=== PATIENT | male | born 1990 | race Caucasian/White ===

== ENCOUNTER 2022-10-16 13:13 | Emergency (ER) | payer OTHER ==
[~2022-10-16] VITALS: Ht 182.9 cm; Wt 63.6 kg
[~2022-10-16 13:13] MED LIST: NO HOME MEDICATIONS
[2022-10-16 13:36] VITALS: TEMP 98.3
[2022-10-16 14:47] LABS: COLLECTION METHOD CLEAN CATCH
[2022-10-16 14:57] LABS: URINE APPEARANCE Clear (CLEAR/HAZY); URINE COLOR Yellow (YELLOW)
[2022-10-16 14:58] LABS: URINE BLOOD Negative (NEGATIVE); URINE GLUCOSE Negative (NEGATIVE); URINE KETONE Negative (NEGATIVE); URINE NITRATE Negative (NEGATIVE); URINE PROTEIN(semi-quant) Negative (NEGATIVE); URINE UROBILINOGEN 0.2 E.U/dL (0.2-1.0)
[2022-10-16 15:03] LABS: MUCOUS Present (NOT PRESENT); SQUAMOUS EPITHELIAL None Seen /hpf (0-10); URINE BACTERIA None Seen /hpf (NONE SEEN); URINE RBC 0-2 /hpf (0-2)
[2022-10-16 15:22] LABS: BASO # 0.1 K/mm3 (0.0-0.2); BASO % 1.5 % (0.0-2.0); GRAN # 3.3 K/mm3 (1.4-6.5); GRAN % 54.1 % (42.2-75.2); HEMATOCRIT 43.3 % (42.0-52.0); HEMOGLOBIN 15.2 g/dl (13.5-18.0); LYMPH # 2.3 K/mm3 (1.2-3.4); LYMPH % 37.9 % (20.0-51.0); MEAN CELL VOLUME 93 fl (80.0-100.0); MEAN CORPUSCULAR HEMOGLOBIN 33 pg (27-31); MEAN CORPUSCULAR HGB CONC 35 g/dl (33.0-37.0); MEAN PLATELET VOLUME 8.2 fl (7.4-10.4); MONO # 0.4 K/mm3 (0.1-0.6); MONO % 6.3 % (1.7-9.3); PLATELET COUNT 449 K/mm3 (130-400); RED BLOOD COUNT 4.66 M/mm3 (4.20-5.60); REDCELL DISTRIBUTION WIDTH-CV 12.3 % (11.5-14.5)
[2022-10-16 15:25] LABS: ALANINE AMINOTRANSFERASE 22 U/L (0-55); ALKALINE PHOSPHATASE 61 U/L (40-150); ANION GAP 11 mmol/L (7-16); AST,SGOT 24 U/L (5-34); BILIRUBIN,TOTAL 0.4 mg/dL (0.2-1.2); BLOOD UREA NITROGEN 6 mg/dL (9-21); CARBON DIOXIDE 28 mmol/L (22-29); CHLORIDE 107 mmol/L (98-107); GLUCOSE 100 mg/dL (70-99); POTASSIUM 4.2 mmol/L (3.5-4.5); SODIUM 146 mmol/L (136-145)
[2022-10-16 15:26] LABS: ACETAMINOPHEN < 1.0 ug/mL (10-30); SALICYLATE < 5.0 mg/dL (15.0-30.0)
[2022-10-16 15:28] LABS: ALCOHOL(ethanol),MEDICAL 307 mg/dL (0-10)
[2022-10-16 15:33] LABS: TRICYCLIC ANTIDEPRESS URINE NEGATIVE
[2022-10-16 15:46] LABS: TSH w REFLEX 0.686 uIU/mL (0.350-4.940)
[2022-10-17 11:15] VITALS: BP 129/89; PULSE 69
== END 2022-10-17 11:15 | disposition home or self-care (01) ==
LOC: COL.ER 13:13
PROVIDERS: Nurse Practitioner Family
DX: F41.9 Anxiety disorder, unspecified (principal); F10.129 Alcohol abuse with intoxication, unspecified; F19.10 Other psychoactive substance abuse, uncomplicated; F17.200 Nicotine dependence, unspecified, uncomplicated; Z28.310 Unvaccinated for COVID-19

== ENCOUNTER 2023-10-07 19:12 | Emergency (ER) | payer OTHER ==
[~2023-10-07] VITALS: Ht 185.4 cm; Wt 72.7 kg
[2023-10-07 19:14] VITALS: BP 127/84; PULSE 66; TEMP 98.2
[2023-10-07 19:30] LABS: BASO # 0.1 K/mm3 (0.0-0.2); BASO % 1.8 % (0.0-2.0); EOS # 0.2 K/mm3 (0.0-0.7); EOS % 2.8 % (0.0-4.0); GRAN # 2.3 K/mm3 (1.4-6.5); GRAN % 33.8 % (42.2-75.2); HEMATOCRIT 45.3 % (42.0-52.0); HEMOGLOBIN 16.7 g/dl (13.5-18.0); LYMPH # 3.6 K/mm3 (1.2-3.4); LYMPH % 53.3 % (20.0-51.0); MEAN CELL VOLUME 89 fl (80.0-100.0); MEAN CORPUSCULAR HEMOGLOBIN 33 pg (27-31); MEAN CORPUSCULAR HGB CONC 37 g/dl (33.0-37.0); MEAN PLATELET VOLUME 8.9 fl (7.4-10.4); MONO # 0.6 K/mm3 (0.1-0.6); MONO % 8.3 % (1.7-9.3); PLATELET COUNT 259 K/mm3 (130-400); REDCELL DISTRIBUTION WIDTH-CV 13.1 % (11.5-14.5)
[2023-10-07 19:48] LABS: ALANINE AMINOTRANSFERASE 30 U/L (0-55); ALKALINE PHOSPHATASE 90 U/L (40-150); ANION GAP 10 mmol/L (7-16); AST,SGOT 36 U/L (5-34); BILIRUBIN,TOTAL 0.7 mg/dL (0.2-1.2); BLOOD UREA NITROGEN 8 mg/dL (9-21); CALCIUM 9.1 mg/dL (8.4-10.2); CARBON DIOXIDE 25 mmol/L (22-29); CHLORIDE 113 mmol/L (98-107); CREATININE, serum 0.85 mg/dL (0.72-1.25); GLUCOSE 85 mg/dL (70-99); POTASSIUM 3.7 mmol/L (3.5-4.5); SALICYLATE < 5.0 mg/dL (15.0-30.0); SODIUM 148 mmol/L (136-145); TOTAL PROTEIN 6.9 gm/dL (6.2-8.1)
[2023-10-07 19:50] LABS: ALCOHOL(ethanol),MEDICAL 385 mg/dL (0-10)
[2023-10-07 20:03] LABS: TROPONIN-I < 0.010 ng/mL (0.00-0.033)
== END 2023-10-07 20:09 | disposition home or self-care (01) ==
LOC: COL.ER 19:12
PROVIDERS: Nurse Practitioner Primary Care
DX: F10.129 Alcohol abuse with intoxication, unspecified (principal); Y90.8 Blood alcohol level of 240 mg/100 ml or more

== ENCOUNTER 2023-10-11 10:31 | Inpatient (IN) | payer OTHER ==
[2023-10-11] VITALS (8 sets, daily range): BP systolic 120–163; BP diastolic 74–91; PULSE 79–100; TEMP 98.1–100.8
[~2023-10-11] VITALS: Ht 185.4 cm; Wt 63.7 kg
[2023-10-11] MEDS ORDERED: NS 1,000 ML IV ONE (11:15)
[2023-10-11 11:17] LABS: COLLECTION METHOD CLEAN CATCH
[2023-10-11 11:26] LABS: BASO # 0.1 K/mm3 (0.0-0.2); BASO % 1.5 % (0.0-2.0); EOS % 0.7 % (0.0-4.0); GRAN # 4.2 K/mm3 (1.4-6.5); GRAN % 72.2 % (42.2-75.2); HEMATOCRIT 47.1 % (42.0-52.0); HEMOGLOBIN 16.5 g/dl (13.5-18.0); LYMPH # 0.9 K/mm3 (1.2-3.4); LYMPH % 15.2 % (20.0-51.0); MEAN CELL VOLUME 92 fl (80.0-100.0); MEAN CORPUSCULAR HEMOGLOBIN 32 pg (27-31); MEAN CORPUSCULAR HGB CONC 35 g/dl (33.0-37.0); MEAN PLATELET VOLUME 9.1 fl (7.4-10.4); MONO # 0.6 K/mm3 (0.1-0.6); MONO % 10.1 % (1.7-9.3); PLATELET COUNT 233 K/mm3 (130-400); RED BLOOD COUNT 5.13 M/mm3 (4.20-5.60); REDCELL DISTRIBUTION WIDTH-CV 13.1 % (11.5-14.5)
[2023-10-11 11:30] LABS: URINE APPEARANCE CLEAR (CLEAR/HAZY); URINE BLOOD NEGATIVE (NEGATIVE); URINE COLOR YELLOW (YELLOW); URINE GLUCOSE NEGATIVE (NEGATIVE); URINE KETONE NEGATIVE (NEGATIVE); URINE NITRATE NEGATIVE (NEGATIVE); URINE PROTEIN(semi-quant) 1+ (NEGATIVE)
[2023-10-11 11:53] LABS: SQUAMOUS EPITHELIAL 0-2 /hpf (0-10); URINE RBC 0-2 /hpf (0-2); URINE WBC 0-2 /hpf (0-2)
[2023-10-11 11:54] LABS: URINE BACTERIA NONE SEEN /hpf (NONE SEEN)
[2023-10-11 12:02] LABS: TRICYCLIC ANTIDEPRESS URINE NEGATIVE (NEGATIVE)
[2023-10-11 12:49] LABS: ALBUMIN 4.5 gm/dL (3.5-5.0); BILIRUBIN,TOTAL 1.1 mg/dL (0.2-1.2); CREATININE, serum 0.78 mg/dL (0.72-1.25); TOTAL PROTEIN 7.8 gm/dL (6.2-8.1)
[2023-10-11 13:14] LABS: POTASSIUM 4.8 mmol/L (3.5-4.5)
[2023-10-11] MEDS ORDERED: Mag/Al Hydrox/Simeth Susp 30 ML CUP PO PRN (13:45)
[2023-10-11] MEDS ORDERED: DESYREL 100MG100 MG PO (13:45)
[2023-10-11] MEDS ORDERED: LORazepam 2 MG/ML 1 ML VIAL IV PRN (13:45)
[2023-10-11] MEDS ORDERED: INDERAL40 MG PO (13:51)
[2023-10-11] MEDS ORDERED: ZOLOFT 50MG50 MG PO (13:52)
[2023-10-11] MEDS ORDERED: Nicotine 21 MG DAILY PATCH TD SCH (15:18)
[2023-10-11] MEDS ORDERED: Ondansetron 4 MG/2 ML VIAL IV PRN (15:30)
[2023-10-11] MEDS ORDERED: NS 1,000 ML IV SCH (15:30)
[2023-10-11] MEDS ORDERED: diazePAM 10 MG TAB PO SCH (16:00)
[2023-10-11] MEDS ORDERED: Multivitamin TAB PO SCH (17:00)
--- NOTE | 2023-10-11 19:19 | NUR ---
Patient assessed at this time. Alert and oriented, and able to make needs known. Reports all over pain and aches. Temp 100.8. Call placed to [facility], new order for one time dose of 1000 mg Acetaminophen. Scored 10 on detox protocol. Peripheral IV to right AC with IV fluids running per orders. Denies SOB and dyspnea. LS CTA. HRR. Telemetry in place. BSAx4. No edema. Aware of plan for detox protocol. Voices no questions, needs, or concerns at this time. In bed with call light within reach.
[2023-10-11] MEDS ORDERED: Acetaminophen 500 MG TAB PO ONE (19:30)
[2023-10-11] MEDS ORDERED: Thiamine 100 MG TAB PO SCH (21:00)
[2023-10-12] VITALS (15 sets, daily range): BP systolic 123–146; BP diastolic 74–91; PULSE 80–108; TEMP 97.6–98.5
--- NOTE | 2023-10-12 06:07 | NUR ---
Patient received PRN Ativan per detox protocol, as well as Valium taper. Reports he has been able to get some rest tonight. Continues on IV fluids per orders. Voices no questions, needs, or concerns at this time. In bed with call light within reach. High fall risk precautions in place. Bed alarm on.
[2023-10-12 08:39] LABS: CALCIUM 8.7 mg/dL (8.4-10.2); CREATININE, serum 0.67 mg/dL (0.72-1.25); MAGNESIUM 1.7 mg/dL (1.6-2.6); POTASSIUM 3.9 mmol/L (3.5-4.5)
[2023-10-12] MEDS ORDERED: Folic Acid 1 MG TAB PO SCH (09:00)
[2023-10-12] MEDS ORDERED: oxyCODONE 5 MG TAB PO SCH (09:15)
--- NOTE | 2023-10-12 11:19 | NUR ---
Initial visit; Patient thanked Machine Brusher for looking in on him and offering God's blessings and Machine Brusher's interest in helping him recover from his alcoholism. Machine Brusher will keep Miles in her prayers. Follow-up.
--- NOTE | 2023-10-12 15:52 | NUR ---
supply service worker was informed by DB Hinson that pt was admitted for alcohol use, has no place to stay, and was interested in inpatient services. supply service worker met with pt to complete intake information and discuss discharge planning. Pt reports he lives in [place]. He sees Dr. Temple and obtains medications with no difficulites. He reports his mother, Kira as his contact. He is independent with ADLS and uses no DME. SW inquired about a DPOA-HC and pt reports he does not have one, but wanted to complete one. He listed his mother, Kira and grandma Denae as his DPOA-HC. SW and Jerica Mcdonnell witnessed his siganture. Original and copies provided. Copy in the chart. SW discussed the RN's note stating pt would be interested in resources. Pt was agreeable to recieving supports. SW discussed inpatient options for MH or ABBY. Pt reports he has never seen anyone or discussed his mental health concerns. Pt attributes his drinking to "stuff in my head" he needs sorted. SW clarified that pt is wanting more so mental health information. SW advised she will speak with [facility] to see if they have co-occuring programs. Pt was agreeable to this. SW discussed how she was informed pt was kicked out of living at his grandmother's. Pt confirmed this. SW advised she can look into [facility]'s if they cannot get him in an inpatient facilty. Pt reports he will see how tomorrow goes. SW advised she will discuss this in the morning. SHRUTHI spoke with [facility] who confirms they accept pt's insurance and have beds. SHRUTHI faxed clinical information to [facility]. SHRUTHI later called back to see if the referral was recieved. SW was informed it was recieved, but they do not do co-occuring treatments. SHRUTHI was provided with information on [facility] and [facility]. SHRUTHI contacted Kay Anderson for insight on inpatient information for pt. She reports she is a senior marketing specialist and can reach out to patient to discuss. SHRUTHI faxed over pt's clinicals for Kay to review. She reports there is openings in [facility] and they can assist with transport. SHRUTHI later met with pt and informed him of the upate. Pt verbalized understanding and acknowledged that Kay, treatment senior marketing specialist will reach out to patient to assist in providing inpatient information. Pt was agreeable to this. Discharge Plan: tbd, pt wants inpatient MH vs penitentiary
[2023-10-12] MEDS ORDERED: oxyCODONE 5 MG TAB PO PRN (19:15)
--- NOTE | 2023-10-12 20:41 | NUR ---
Patient assessed around 1954. Scored 10 on detox protocol, and given PRN Ativan per orders. Did complain of mild nausea, but did not wanting anything for it at this time. Alert and oriented x 4. Peripheral IV to right AC with IV fluids running per orders. LS CTA. HRR. Telemetry in place. BSAx4. No edema. Voices no questions, needs, or concerns at this time. In bed with call light within reach. High fall risk precautions in place. Bed alarm on.
[2023-10-13] VITALS (10 sets, daily range): BP systolic 119–137; BP diastolic 76–88; PULSE 70–89; TEMP 97.5–98.3
--- NOTE | 2023-10-13 05:37 | NUR ---
Patient continues on detox protocol. Given PRN Ativan twice this shift per protocol, and scheduled Valium once. Patient more drowsy tonight, but does awaken to verbal stimuli. Reports feeling foggy, and explained that it could be a side effect from the medication. Went over detox medications with patient multiple times during the night. Asking when Ativan is next due, but explained that it is based off of his detox score, and he did not score high enough for Ativan. Continues on IV fluids per orders. Voices no further questions, needs, or concerns at this time. In bed with call light within reach. High fall risk precautions in place. Bed alarm on.
--- NOTE | 2023-10-13 07:30 | NUR ---
Patient sleeping in bed, easily awakened with verbal command. A&Ox3. VSS. IV CDI, fluids infusing. Denies pain and discomfort. ETOH protocol in place. Call light within reach. Bed alarm on
[2023-10-13 07:52] LABS: BASO % 0.8 % (0.0-2.0); EOS # 0.1 K/mm3 (0.0-0.7); EOS % 1.8 % (0.0-4.0); GRAN # 3.1 K/mm3 (1.4-6.5); GRAN % 64.3 % (42.2-75.2); LYMPH # 1.1 K/mm3 (1.2-3.4); LYMPH % 22.7 % (20.0-51.0); MEAN CELL VOLUME 91 fl (80.0-100.0); MEAN CORPUSCULAR HEMOGLOBIN 32 pg (27-31); MEAN CORPUSCULAR HGB CONC 35 g/dl (33.0-37.0); MEAN PLATELET VOLUME 10.2 fl (7.4-10.4); MONO # 0.5 K/mm3 (0.1-0.6); MONO % 10.2 % (1.7-9.3); PLATELET COUNT 153 K/mm3 (130-400); RED BLOOD COUNT 4.27 M/mm3 (4.20-5.60); REDCELL DISTRIBUTION WIDTH-CV 12.8 % (11.5-14.5)
[2023-10-13 07:57] LABS: HEMOGLOBIN 13.7 g/dl (13.5-18.0)
[2023-10-13 08:08] LABS: CALCIUM 8.7 mg/dL (8.4-10.2); CREATININE, serum 0.61 mg/dL (0.72-1.25); MAGNESIUM 1.7 mg/dL (1.6-2.6); POTASSIUM 3.9 mmol/L (3.5-4.5)
[2023-10-13] MEDS ORDERED: FOLIC ACID 11 MG/TA1 PO (08:29)
[2023-10-13] MEDS ORDERED: MULTI VITAMINS1 TAB PO (08:30)
[2023-10-13] MEDS ORDERED: THIAMINE 1100 MG/TAB PO (08:30)
--- NOTE | 2023-10-13 11:17 | NUR ---
Discharge paperwork reviewed with the patient. PAtient verbalized an understanding to follow doctors orders. Patient calling mom for update on ride and hotel information. Call light within reach
--- NOTE | 2023-10-13 16:08 | NUR ---
homeworker was informed during rounding by Dr. Hastings that pt can discharge today. SHRUTHI spoke with Justin field service representative, Kay [phone] to discuss if pt was accepted for inpatient MH/ABBY. She informs SW patient was accepted to [address] [place] [address] in [facility] and they are corresponding transportation information. She reports patient (and SW) need to confirm by calling [employer] that his insurance is primary as they are showing Medicaid. SW met with pt to discuss the plan. He reports he has been discussing with the admissions individual and Kay. SW advised they need to call [employer] to discuss if this is primary insurance and obtain the name and reference number of who confirms this. Pt was agreeable to SW's help. SHRUTHI called [employer] with pt who confirmed this is primary and spoke with Flaca Nguyen ref #[id number]. Kay, pt, and their admissions team continued to work towards transportation details. SHRUTHI spoke with patient's mother, Kira and GrandDenae valadez to discuss where patient could stay if this transfer is not done from the hospital. Mother was agreeable to getting pt a hotel and Uber for the night. Pt informed the team that he will go tomorrow to [address] [place] [address]. SW corresponded with Mother who confirmed she booked a room for pt at [facility] in [place], [place]. Mother ended up having trouble scheduling an Uber so SHRUTHI advised she will complete this. SHRUTHI spoke with GrandDenae valadez who brought patient some items, but did not want contact with him so SW provided his bag and jacket. SW provided an additional pair of clean clothes and toiltries for patient as he had limited belongings. SHRUTHI passed on the hotel location to Kay, treatment water treatment specialist for tomorrow when patient leaves to the inpatient facility. SHRUTHI scheduled an Uber and informed the RN Roselia. Discharge Plan: hotel then inpatient treatment
--- NOTE | 2023-10-13 16:20 | NUR ---
Patient taken by wheelchair to ER entrance and awaiting uber. Discharge paperwork and personal belongings with the patient. No further needs expressed.
== END 2023-10-13 16:21 | disposition home or self-care (01) | DRG 897 ==
LOC: COL.ER 10:31 → MEDICAL 13:37 → COL.ER 13:37 → MEDICAL 13:37
PROVIDERS: Physician Assistant; ADMIT Internal Medicine
DX: F10.139 Alcohol abuse with withdrawal, unspecified (principal); E87.5 Hyperkalemia; G40.909 Epilepsy, unspecified, not intractable, without status epilepticus; F17.210 Nicotine dependence, cigarettes, uncomplicated; Y90.6 Blood alcohol level of 120-199 mg/100 ml; F41.9 Anxiety disorder, unspecified; F32.A Depression, unspecified
CPT/HCPCS: OP; J2060; J2405; J7030